=== PATIENT | female | born 1995 | race Caucasian/White ===

== ENCOUNTER 2018-01-20 02:03 | Inpatient (IN) | payer MEDICAID ==
[~2018-01-20] VITALS: Ht 160 cm; Wt 131.7 kg
[2018-01-20 02:12] VITALS: Ht 160 cm; Wt 131.7 kg
[2018-01-20 03:34] LABS: CALCIUM 9.3 mg/dL (8.5-10.1); CARBON DIOXIDE 29.3 mmol/L (21-32); CHLORIDE SERUM 100 mmol/L (98-107); CREATININE SERUM 0.6 mg/dL (0.6-1.0); GFR1 > 60 mL/min; GLUCOSE SERUM 108 mg/dL (74-106); SODIUM SERUM 140 mmol/L (136-145)
[2018-01-20 03:38] LABS: ALKALINE PHOSPHATASE 244 U/L (46-116); ALT/SGPT 896 U/L (14-59); AST/SGOT 708 U/L (15-37); BILIRUBIN TOTAL 4.68 mg/dL (0.20-1.00); LIPASE 81 IU/L (73-393); TOTAL PROTEIN, SERUM 8.1 g/dL (6.4-8.2)
[2018-01-20 03:39] LABS: ALBUMIN 3.3 g/dL (3.4-5.0)
[2018-01-20 03:41] LABS: BASOPHIL % 0.1 % (0-2); PLATELET COUNT 295 x10^3mcL (130-400); RED CELL DISTRIBUTION WIDTH 13.4 % (11.5-14.5)
[2018-01-20 07:49] LABS: CHOLESTEROL/HDL RATIO 2.6; MAGNESIUM 2.3 mg/dL (1.8-2.4); PHOSPHOROUS 3.3 mg/dL (2.5-4.9)
[2018-01-20 07:54] LABS: T3 TOTAL 0.83 ng/mL
[2018-01-20 08:24] LABS: FREE T4 1.6 ng/dL (0.76-1.46); FREE THYROXINE INDEX 3.6 ug/dL (1.4-4.5); T4(THYROXINE) 9.8 ug/dL (4.7-13.3)
[2018-01-20 09:47] VITALS: BP 123/71
[2018-01-20 12:05] LABS: microscopic required? YES; urine erythrocyte 2+ (NEGATIVE)
[2018-01-20 12:37] LABS: AMPHETAMINE QUAL UR NONE DETECTED (NEG <=1000)
[2018-01-20 13:59] VITALS: BP 123/76
[2018-01-20 16:49] VITALS: BP 121/64
[2018-01-20 19:15] VITALS: BP 113/55
[2018-01-21] VITALS (7 sets, daily range): BP systolic 116–136; BP diastolic 69–88
[2018-01-21 05:43] LABS: BASOPHIL % 0.4 % (0-2); PLATELET COUNT 291 x10^3mcL (130-400); RED CELL DISTRIBUTION WIDTH 13.3 % (11.5-14.5)
[2018-01-21 06:05] LABS: ALKALINE PHOSPHATASE 279 U/L (46-116); ALT/SGPT 901 U/L (14-59); AST/SGOT 464 U/L (15-37); BILIRUBIN TOTAL 5.19 mg/dL (0.20-1.00); CARBON DIOXIDE 26.3 mmol/L (21-32); CHLORIDE SERUM 104 mmol/L (98-107); CREATININE SERUM 0.6 mg/dL (0.6-1.0); GFR1 > 60 mL/min; GLUCOSE SERUM 83 mg/dL (74-106); MAGNESIUM 2.3 mg/dL (1.8-2.4); SODIUM SERUM 141 mmol/L (136-145); TOTAL PROTEIN, SERUM 7.6 g/dL (6.4-8.2)
[2018-01-21 06:06] LABS: ALBUMIN 2.9 g/dL (3.4-5.0)
[2018-01-22 06:25] LABS: ALKALINE PHOSPHATASE 240 U/L (46-116); ALT/SGPT 611 U/L (14-59); AST/SGOT 154 U/L (15-37); BASOPHIL % 0.4 % (0-2); BILIRUBIN TOTAL 1.2 mg/dL (0.20-1.00); CALCIUM 8.4 mg/dL (8.5-10.1); CARBON DIOXIDE 27.8 mmol/L (21-32); CHLORIDE SERUM 104 mmol/L (98-107); CREATININE SERUM 0.6 mg/dL (0.6-1.0); GFR1 > 60 mL/min; GLUCOSE SERUM 95 mg/dL (74-106); PHOSPHOROUS 3.6 mg/dL (2.5-4.9); PLATELET COUNT 263 x10^3mcL (130-400); RED CELL DISTRIBUTION WIDTH 13.4 % (11.5-14.5); SODIUM SERUM 140 mmol/L (136-145); TOTAL PROTEIN, SERUM 6.9 g/dL (6.4-8.2)
[2018-01-22 06:26] VITALS: BP 128/64
[2018-01-22 06:29] LABS: ALBUMIN 2.6 g/dL (3.4-5.0)
[2018-01-22] MEDS ORDERED: COL100 PO (09:15)
[2018-01-22] MEDS ORDERED: NORCO1 TA2 PO (09:16)
[2018-01-22 10:02] VITALS: BP 124/80
[2018-01-22 11:16] VITALS: BP 124/80
[2018-02-02] MEDS ORDERED: COL100 PO (10:58)
[2018-02-02] MEDS ORDERED: APAP/HYDROCODON1 T13 PO (10:58)
[2018-02-02] MEDS ORDERED: ZOF4 PO (10:59)
== END 2018-01-22 14:00 | disposition home or self-care (01) ==
LOC: ED 02:03 → MU 06:20 → DU 06:20 → MU 01-21 18:04
PROVIDERS: Emergency Medicine; Family Medicine
PROC: 0F798DZ Dilation of Common Bile Duct with Intraluminal Device, Via Natural or Artificial Opening Endoscopic (ICD-10-PCS; principal; 2018-01-22)
PROC: BF131ZZ Fluoroscopy of Gallbladder and Bile Ducts using Low Osmolar Contrast (ICD-10-PCS; 2018-01-22)
DX: K81.0 Acute cholecystitis (principal); E43 Unspecified severe protein-calorie malnutrition; E80.6 Other disorders of bilirubin metabolism; E87.6 Hypokalemia; Z68.43 Body mass index [BMI] 50.0-59.9, adult; E66.01 Morbid (severe) obesity due to excess calories
CPT/HCPCS: 43262; 83880; 84439; C1769; C2625; G0480; J0696; J1610; J1885; J2175; J2250; J2543; J2704; J3010; J7030; J7120; Q0092; Q9967